=== PATIENT | male | born 1990 | race Caucasian/White ===

== ENCOUNTER 2017-02-02 15:19 | Emergency (ER) | payer OTHER ==
[~2017-02-02] VITALS: Ht 172.7 cm; Wt 70.3 kg
[2017-02-02] MEDS ORDERED: IV NORMAL SALINE 1000ML BAG 1,000 ML IV SCH (16:26)
[2017-02-02] MEDS ORDERED: KETOROLAC TROMETHAMINE 30 MG/ML INJ. IV ONE (16:30)
[2017-02-02] MEDS ORDERED: LORAZEPAM 2 MG/ML VIAL. IV ONE (16:30)
[2017-02-02] MEDS ORDERED: LIDO:MAALOX:DONNATAL 1:1:1 15 ML SINGLE DOSE SWSW ONE (16:30)
--- NOTE | 2017-02-02 16:34 | PHYS DOC ---
Past Medical History Past Medical History: Anxiety, Arthritis, Other Additional Past Medical Histor: SINUS PROBLEMS, COSTOCHONDRITIS, KIDNEY STONES Past Surgical History: Other Additional Past Surgical Histo: NASAL SX, SINUS SX, WISDOM Alcohol Use: None Drug Use: None Adult General Chief Complaint Chief Complaint: CHEST PAIN HPI HPI Patient is a 26 year old male who presents with complaint of chest pain. Patient states he awoke with chest pain this morning. Patient states that he has been having intermittent episodes of chest pain over the past month. Patient states that he has been seen as recently as 2 days ago in the emergency department and was treated for costochondritis. Patient states that he has been treated with steroid therapy which did not help his symptoms and worsened his insomnia and anxiety. Patient states that he has pain in his chest with breathing. Patient has not had any fever, diaphoresis, or shortness of breath but states that his pain makes it difficult to breathe. Patient also states that he has been having pain in his throat and in his sinuses. The patient states that his sinus problems are chronic and he is currently being evaluated by ENT for a potential procedure to help with this. Patient states that approximately 1-1/2 hours prior to arrival he started getting severe symptoms that he stated were unbearable. Patient states that he has been having a significant amount of stress associated with the symptoms and while denying suicidal thoughts at this time, he does state that his stress may lead to thoughts of this in the future. Review of Systems Review of Systems Constitutional: Denies fever or chills [] Eyes: Denies change in visual acuity, redness, or eye pain [] HENT: Chronic nasal congestion, sore throat [] Respiratory: Pain with breathing [] Cardiovascular: Chest pain, denies edema [] GI: Denies abdominal pain, nausea, vomiting, bloody stools or diarrhea [] : Denies dysuria or hematuria [] Musculoskeletal: Denies back pain or joint pain [] Integument: Denies rash or skin lesions [] Neurologic: Denies headache, focal weakness or sensory changes [] Current Medications Current Medications Current Medications Medications (Trade) Dose Ordered Sig/Venancio Start Time Stop Time Status Last Admin Dose Admin Ketorolac Tromethamine (Toradol) 30 mg 1X ONCE 02/02/17 16:30 02/02/17 16:31 DC 02/02/17 17:02 30 MG Lorazepam (Ativan) 1 mg 1X ONCE 02/02/17 16:30 02/02/17 16:31 DC 02/02/17 17:03 1 MG Multi-Ingredient Mouthwash/Gargle (Gi Cocktail Single Dose) 15 ml 1X ONCE 02/02/17 16:30 02/02/17 16:31 DC 02/02/17 17:02 15 ML Sodium Chloride (Iv Sodium Chloride 0.9% 1000ml Bag) 1,000 ml @ 1,000 mls/hr Q1H 02/02/17 16:26 02/02/17 17:25 DC 02/02/17 17:03 1,000 MLS/HR Allergies Allergies Allergies Coded Allergies Type Severity Reaction Last Updated Verified No Known Drug Allergies 02/02/17 No Physical Exam Physical Exam Constitutional: Alert, afebrile, appears in mild to moderate discomfort. [] HENT: Normocephalic, atraumatic, bilateral external ears normal, oropharynx moist, no oral exudates, nose normal. [] Eyes: PERRLA, EOMI, conjunctiva normal, no discharge. [] Neck: Normal range of motion, no tenderness, supple, no stridor. [] Cardiovascular:Heart rate regular rhythm, no murmur [] Lungs & Thorax: Bilateral breath sounds clear to auscultation, tenderness palpation along left sternal border causing reproducible pain, no wheezing [] Abdomen: Bowel sounds normal, soft, no tenderness, no masses, no pulsatile masses. [] Skin: Warm, dry, no erythema, no rash. [] Back: No tenderness, no CVA tenderness. [] Extremities: No tenderness, no cyanosis, no clubbing, ROM intact, no edema. [] Neurologic: Alert and oriented X 3, normal motor function, normal sensory function, no focal deficits noted. [] Current Patient Data Vital Signs Vital Signs Date Time Temp Pulse Resp B/P Pulse Ox O2 Delivery O2 Flow Rate FiO2 02/02/17 15:23 98.2 87 18 158/110 100 Room Air 98.2 Lab Values Laboratory Tests Test 02/02/17 15:45 02/02/17 17:00 White Blood Count 5.9x10^3/uL (4.0-11.0) Red Blood Count 4.85x10^6/uL (4.30-5.70) Hemoglobin 14.2g/dL (13.0-17.5) Hematocrit 41.1% (39.0-53.0) Mean Corpuscular Volume 85fL (79-100) Mean Corpuscular Hemoglobin 29pg (25-35) Mean Corpuscular Hemoglobin Concent 35g/dL (31-37) Red Cell Distribution Width 12.7% (11.5-14.5) Platelet Count 216x10^3/uL (140-400) Neutrophils (%) (Auto) 71% (31-73) Lymphocytes (%) (Auto) 18% (24-48) L Monocytes (%) (Auto) 9% (0-9) Eosinophils (%) (Auto) 2% (0-3) Basophils (%) (Auto) 1% (0-3) Neutrophils # (Auto) 4.2x10^3uL (1.8-7.7) Lymphocytes # (Auto) 1.1x10^3/uL (1.0-4.8) Monocytes # (Auto) 0.5x10^3/uL (0.0-1.1) Eosinophils # (Auto) 0.1x10^3/uL (0.0-0.7) Basophils # (Auto) 0.0x10^3/uL (0.0-0.2) D-Dimer (Judit) < 0.27ug/mlFEU (0.00-0.50) Sodium Level 141mmol/L (136-145) Potassium Level 3.7mmol/L (3.5-5.1) Chloride Level 105mmol/L (98-107) Carbon Dioxide Level 27mmol/L (21-32) Anion Gap 9 (6-14) Blood Urea Nitrogen 12mg/dL (8-26) Creatinine 1.1mg/dL (0.7-1.3) Estimated GFR (Cockcroft-Gault) 79.7 Glucose Level 110mg/dL (70-99) H Calcium Level 9.3mg/dL (8.5-10.1) Magnesium Level 1.8mg/dL (1.8-2.4) Total Bilirubin 1.1mg/dL (0.2-1.0) H Direct Bilirubin 0.2mg/dL (0.0-0.2) Aspartate Amino Transferase (AST) 34U/L (15-37) Alanine Aminotransferase (ALT) 52U/L (16-63) Alkaline Phosphatase 65U/L (46-116) Creatine Kinase 106U/L (39-308) Creatine Kinase MB (Mass) 0.8ng/mL (0.0-3.6) Creatine Kinase MB Relative Index 0.8% (0-4) Troponin I Quantitative < 0.017ng/mL (0.000-0.055) Total Protein 7.3g/dL (6.4-8.2) Albumin 4.2g/dL (3.4-5.0) Lipase 136U/L (73-393) Urine Color Yellow Urine Clarity Clear Urine pH 8.5 Urine Specific [place] 1.010 Urine Protein Negativemg/dL (NEG-TRACE) Urine Glucose (UA) Negativemg/dL (NEG) Urine Ketones (Stick) Negativemg/dL (NEG) Urine Blood Negative (NEG) Urine Nitrite Negative (NEG) Urine Bilirubin Negative (NEG) Urine Urobilinogen Dipstick 1.0mg/dL (0.2 mg/dL) Urine Leukocyte Esterase Negative (NEG) Urine RBC 0/HPF (0-2) Urine WBC Occ/HPF (0-4) Urine Squamous Epithelial Cells Occ/LPF Urine Bacteria 0/HPF (0-FEW) Urine Opiates Screen Neg (NEG) Urine Methadone Screen Neg (NEG) Urine Barbiturates Neg (NEG) Urine Phencyclidine Screen Neg (NEG) Urine Amphetamine/Methamphetamine Neg (NEG) Urine Benzodiazepines Screen Neg (NEG) Urine Cocaine Screen Neg (NEG) Urine Cannabinoids Screen Neg (NEG) Urine Ethyl Alcohol Neg (NEG) Laboratory Tests 02/02/17 15:45 Laboratory Tests 02/02/17 15:45 EKG EKG Interpreted by me: Heart rate 76, normal sinus rhythm, normal intervals, normal axis, no acute ST/T-wave abnormalities present [] Radiology/Procedures Radiology/Procedures [facility] [address] [place] [address] IMAGING REPORT Signed PATIENT: FRANCESCA RITTER ACCOUNT: [id number] : 1990 LOCATION: ER AGE: 26 SEX: M EXAM STATUS: REG ER ORD. PHYSICIAN: NADINE CASAS MD REASON: chest pain PROCEDURE: PORTABLE CHEST 1V Exam: AP portable chest. History: Chest pain beginning today. Comparison: None. Findings: The heart and mediastinal structures are within normal limits for size. Lungs are without infiltrate. No pneumothorax or pleural effusion is appreciated. Impression: 1. No acute cardiopulmonary process. DICTATED and SIGNED BY: IGNACIO BANEGAS MD DATE: 02/02/17 8174 CC: CHARAN PAYTON; NADINE CASAS MD ~ [] Course & Med Decision Making Course & Med Decision Making Pertinent Labs and Imaging studies reviewed. (See chart for details) Patient was given GI cocktail, Ativan, and Toradol in the emergency department. Patient's labwork unremarkable. The patient states his symptoms have improved at this time. The patient's symptoms appear consistent with chest wall pain the patient's sore throat symptoms may be result of acid reflux due to patient's symptoms worsening at nighttime. Included in the patient's differential is chronic sinusitis with postnasal drip. The patient states that he is scheduled to see an learning disabled teacher on February 16. Advised to continue with this appointment. The patient will be started on Pepcid, Medrol Dosepak, and Valium at bedtime. Advised follow-up with patient's primary doctor in the next 5 days. Patient also provided referrals for Dr. Monroy of gastroenterology and Dr. Mcgill of cardiology for continued outpatient workup to rule out other causes for patient's symptoms. The patient at this time voices no suicidal or homicidal thoughts and states that he will follow-up with his psychiatrist and therapist for further psychiatric treatment. Advised return to the emergency department for any worsening symptoms. Patient voiced understanding and in agreement with treatment plan. Dragon Disclaimer Dragon Disclaimer This electronic medical record was generated, in whole or in part, using a voice recognition dictation system. Departure Departure Impression: Primary Impression: Chest pain Additional Impression: Anxiety Disposition: 01 HOME, SELF-CARE Condition: IMPROVED Referrals: MAURA MCGILL MD, SCOTT S MD Patient Instructions: Chest Pain (Nonspecific) Additional Instructions: Your lab testing did not reveal evidence for any acute problems with your lungs or heart. Your chest pain is likely due to inflammation of your chest wall. There is suspicion that you may be suffering from acid reflux symptoms which could be causing or sore throat. It is recommended that you follow-up in 1-[address] Monroy of gastroenterology for further evaluation of the possibility of acid reflux syndrome. You will also be referred to Dr. Mcgill of cardiology for recommended follow-up in 1-2 weeks for further evaluation of your chest pain. Return to the emergency department for any worsening symptoms. Scripts Famotidine (Pepcid)20 Mg Dixndz21 Mg PO BID #30 TAB Prov:NADINE CASAS MD 02/02/17 Diazepam (Valium)5 Mg Tablet5 Mg PO QHS PRN INSOMNIA #15 TAB Prov:NADINE CASAS MD 02/02/17 Methylprednisolone (Medrol)4 Mg Tab.ds.pk1 Pkg PO UD #1 PKG Prov:NADINE CASAS MD 02/02/17 Problem Qualifiers Primary Impression: Chest pain Chest pain type: other chest pain Qualified Code: R07.89 - Other chest pain NADINE CASAS MD Feb 02, 2017 16:34
[2017-02-02 16:42] LABS: BASO % 1 % (0-3); EOS % 2 % (0-3); HEMATOCRIT 41.1 % (39.0-53.0); HEMOGLOBIN 14.2 g/dL (13.0-17.5); LYMPH # 1.1 x10^3/uL (1.0-4.8); LYMPH % 18 % (24-48); MEAN CORPUSCULAR HEMOGLOBIN 29 pg (25-35); MEAN CORPUSCULAR HGB CONC 35 g/dL (31-37); MEAN CORPUSCULAR VOLUME 85 fL (79-100); MONO % 9 % (0-9); NEUT % 71 % (31-73); PLATELET COUNT 216 x10^3/uL (140-400); RED BLOOD COUNT 4.85 x10^6/uL (4.30-5.70); RED CELL DISTRIBUTION WIDTH 12.7 % (11.5-14.5); WHITE BLOOD COUNT 5.9 x10^3/uL (4.0-11.0)
--- NOTE | 2017-02-02 16:47 | RAD ---
Exam: AP portable chest. History: Chest pain beginning today. Comparison: None. Findings: The heart and mediastinal structures are within normal limits for size. Lungs are without infiltrate. No pneumothorax or pleural effusion is appreciated. Impression: 1. No acute cardiopulmonary process.
[2017-02-02 17:00] VITALS: BP 127/87
[2017-02-02 17:04] LABS: CALCIUM 9.3 mg/dL (8.5-10.1); CREATININE 1.1 mg/dL (0.7-1.3); GFR 79.7; POTASSIUM 3.7 mmol/L (3.5-5.1)
[2017-02-02 17:10] LABS: ALBUMIN 4.2 g/dL (3.4-5.0); DIRECT BILIRUBIN 0.2 mg/dL (0.0-0.2); MAGNESIUM 1.8 mg/dL (1.8-2.4); TOTAL BILIRUBIN 1.1 mg/dL (0.2-1.0); TOTAL PROTEIN 7.3 g/dL (6.4-8.2)
[2017-02-02 17:15] LABS: CKMB INDEX 0.8 % (0-4); CKMB MASS 0.8 ng/mL (0.0-3.6)
[2017-02-02 17:27] LABS: BILIRUBIN,URINE NEGATIVE (NEG); GLUCOSE,URINE NEGATIVE (NEG); NITRITE,URINE NEGATIVE (NEG); PH,URINE 8.5; PROTEIN,URINE NEGATIVE (NEG-TRACE)
[2017-02-02 17:35] LABS: BARBITURATES NEG (NEG); BENZODIAZEPINES NEG (NEG); CANNABINOIDS NEG (NEG); COCAINE NEG (NEG); METHADONE NEG (NEG); OPIATES NEG (NEG); PHENCYCLIDINE NEG (NEG)
[2017-02-02 17:36] LABS: ETHANOL, URINE NEG (NEG)
[2017-02-02 17:41] LABS: BACTERIA,URINE 0 /HPF (0-FEW); RBC,URINE 0 /HPF (0-2); SQUAMOUS EPITHELIAL CELL,UR OCC /LPF; WBC,URINE OCC /HPF (0-4)
--- NOTE | 2017-02-02 17:59 | EKG ---
[facility] [address] [place] [address] Test Date: 2017-02-02 Test Time: 15:23:00 Pat Name: FRANCESCA RITTER Department: Room: Gender: M Basketball Coach: : 1990 Requested By: NADINE CASAS Order Number: [id number] Reading MD: Mohan Mcgill Measurements Intervals [place] Rate: 76 P: 51 [place]: 156 QRS: 23 QRSD: 92 T: 30 QT: 336 QTc: 382 Interpretive Statements SINUS RHYTHM Electronically Signed On 02-03-2017 15:55:37 CDT by Mohan Mcgill
[2017-02-02] MEDS ORDERED: METH4TAB2 PO (18:33)
[2017-02-02] MEDS ORDERED: FAMO-63 PO (18:33)
[2017-02-02] MEDS ORDERED: DIAZ5TAB PO (18:33)
== END 2017-02-02 18:58 | disposition home or self-care (01) ==
LOC: ER 15:19
DX: R07.89 Other chest pain (principal); F41.9 Anxiety disorder, unspecified; M19.90 Unspecified osteoarthritis, unspecified site
CPT/HCPCS: 36415; 71010; 80048; 80076; 80305; 81001; 82553; 83690; 83735; 84484; 85027; 85379; 93005; 96361; 96374; 96375; 99285; J1885; J2060; J7030; G0481

== ENCOUNTER → 2017-03-03 | Outpatient (CLI) | payer OTHER ==
[2017-02-02 17:00] VITALS: BP 127/87
[~2017-03-03] VITALS: Ht 170.2 cm; Wt 68.9 kg
[~2017-03-03] MED LIST: DIAZ5TAB PO; FAMO-63 PO; METH4TAB2 PO; SINCALIDE 1.38 MCG in IV NORMAL SALINE 50ML 30 ML IV ONE
--- NOTE | 2017-03-03 10:53 | RAD ---
Right upper quadrant abdominal ultrasound, 03/03/2017: History: Pain The gallbladder is within normal limits in size. There is no sonographic evidence of cholelithiasis. The gallbladder wall is not thickened. No bile duct dilatation is seen. The visualized portions of the liver, pancreas and right kidney are unremarkable. IMPRESSION: No significant abnormality is detected.
--- NOTE | 2017-03-03 13:13 | RAD ---
Indication abdominal pain for 3 months. Hepatobiliary scan was performed. 5 mCi of technetium labeled Choletec was administered. 1.4 mcg of CCK was diluted in saline and administered over several minutes. Following the CCK administration a gallbladder ejection fraction calculation was made. There is normal uptake of the radiopharmaceutical in the liver. Activity is seen early in the biliary system and gallbladder. Following the Kinevac administration the estimated gallbladder ejection fraction approaches 80%. IMPRESSION: Normal study
== END | disposition home or self-care (01) ==
LOC: US 09:55
PROVIDERS: ATTEND Internal Medicine Gastroenterology
DX: R10.13 Epigastric pain (principal)
CPT/HCPCS: 76705; 78226; 96374; 96375; A9537; J2805

== ENCOUNTER 2017-03-23 11:11 | Emergency (ER) | payer OTHER ==
[~2017-03-23] VITALS: Ht 170.2 cm; Wt 68.0 kg
[~2017-03-23 11:11] MED LIST changes: -SINCALIDE 1.38 MCG in IV NORMAL SALINE 50ML 30 ML IV ONE
[2017-03-23] MEDS ORDERED: fentaNYL PF VIAL 100 MCG/2 ML VIAL IV ONE (11:45)
[2017-03-23] MEDS ORDERED: KETOROLAC TROMETHAMINE 30 MG/ML INJ. IV ONE (11:45)
[2017-03-23 12:10] LABS: BASO # 0.1 x10^3/uL (0.0-0.2); BASO % 1 % (0-3); EOS % 3 % (0-3); HEMATOCRIT 43.5 % (39.0-53.0); HEMOGLOBIN 15.2 g/dL (13.0-17.5); LYMPH # 1.5 x10^3/uL (1.0-4.8); LYMPH % 31 % (24-48); MEAN CORPUSCULAR HEMOGLOBIN 29 pg (25-35); MEAN CORPUSCULAR HGB CONC 35 g/dL (31-37); MEAN CORPUSCULAR VOLUME 84 fL (79-100); MONO % 9 % (0-9); NEUT % 55 % (31-73); PLATELET COUNT 256 x10^3/uL (140-400); RED BLOOD COUNT 5.15 x10^6/uL (4.30-5.70); RED CELL DISTRIBUTION WIDTH 12.8 % (11.5-14.5); WHITE BLOOD COUNT 4.9 x10^3/uL (4.0-11.0)
[2017-03-23 12:12] LABS: CALCIUM 9.6 mg/dL (8.5-10.1); CREATININE 0.9 mg/dL (0.7-1.3); GFR 100.5; POTASSIUM 4.1 mmol/L (3.5-5.1)
[2017-03-23 12:18] LABS: ALBUMIN 4.4 g/dL (3.4-5.0); ALBUMIN/GLOBULIN RATIO 1.4 (1.0-1.7); TOTAL BILIRUBIN 1.7 mg/dL (0.2-1.0); TOTAL PROTEIN 7.6 g/dL (6.4-8.2)
--- NOTE | 2017-03-23 12:25 | RAD ---
EXAM: Chest one view. HISTORY: Chest pain and shortness of breath. COMPARISON: 02/02/2017. FINDINGS: A frontal view of the chest is obtained. There are no confluent infiltrates. There is no pneumothorax or pleural effusion. The heart is not enlarged. IMPRESSION: 1. No confluent infiltrates.
[2017-03-23] MEDS ORDERED: HYDR-971 PO (12:32)
--- NOTE | 2017-03-23 12:33 | PHYS DOC ---
Past Medical History Past Medical History: Anxiety, Arthritis, Other Additional Past Medical Histor: SINUS PROBLEMS, COSTOCHONDRITIS, KIDNEY STONES Past Surgical History: Other Additional Past Surgical Histo: NASAL SX, SINUS SX, WISDOM Alcohol Use: None Drug Use: None Adult General Chief Complaint Chief Complaint: MULTIPLE COMPLAINTS HPI HPI Patient is a 26 year old male presenting to the emergency department for evaluation of sore throat and chest pain that has been an ongoing issue for at least 3 weeks. Sore throat feels very scratchy and he has seen multiple specialists including ENT and he is scheduled to see GI today cardiology Thursday and his ENT again later next week. Patient says that the pain in his chest is sharp worse with inspiration and he says that he gets some short of breath when he is up walking around. He says that this pain is fairly constant for the past 3 weeks but is worse with deep breaths. He says it hurts to swallow and he has a lot of postnasal drip and he has tried multiple [id number] medications with no relief. Review of Systems Review of Systems Constitutional: Denies fever or chills [] HENT: + nasal congestion and sore throat [] Respiratory: + cough and shortness of breath [] Cardiovascular: + CP GI: Denies abdominal pain, nausea, vomiting, bloody stools or diarrhea [] Current Medications Current Medications Current Medications Medications (Trade) Dose Ordered Sig/Venancio Start Time Stop Time Status Last Admin Dose Admin Fentanyl Citrate (Fentanyl 2ml Vial) 75 mcg 1X ONCE 03/23/17 11:45 03/23/17 11:46 DC 03/23/17 12:05 75 MCG Ketorolac Tromethamine (Toradol) 30 mg 1X ONCE 03/23/17 11:45 03/23/17 11:46 DC 03/23/17 12:03 30 MG Allergies Allergies Allergies Coded Allergies Type Severity Reaction Last Updated Verified No Known Drug Allergies 03/23/17 No Physical Exam Physical Exam Constitutional: Well developed, well nourished, no acute distress, non-toxic appearance. [] HENT: Normocephalic, atraumatic, bilateral external ears normal, oropharynx mildly erythematous Cardiovascular:Heart rate regular rhythm, no murmur [] Lungs & Thorax: Bilateral breath sounds clear to auscultation [] Abdomen: Bowel sounds normal, soft, no tenderness, no masses, no pulsatile masses. [] Current Patient Data Vital Signs Vital Signs Date Time Temp Pulse Resp B/P (MAP) Pulse Ox O2 Delivery O2 Flow Rate FiO2 03/23/17 12:05 18 97 Room Air 03/23/17 11:25 97.9 76 97.9 Lab Values Laboratory Tests Test 03/23/17 11:50 White Blood Count 4.9 x10^3/uL (4.0-11.0) Red Blood Count 5.15 x10^6/uL (4.30-5.70) Hemoglobin 15.2 g/dL (13.0-17.5) Hematocrit 43.5 % (39.0-53.0) Mean Corpuscular Volume 84 fL (79-100) Mean Corpuscular Hemoglobin 29 pg (25-35) Mean Corpuscular Hemoglobin Concent 35 g/dL (31-37) Red Cell Distribution Width 12.8 % (11.5-14.5) Platelet Count 256 x10^3/uL (140-400) Neutrophils (%) (Auto) 55 % (31-73) Lymphocytes (%) (Auto) 31 % (24-48) Monocytes (%) (Auto) 9 % (0-9) Eosinophils (%) (Auto) 3 % (0-3) Basophils (%) (Auto) 1 % (0-3) Neutrophils # (Auto) 2.7 x10^3uL (1.8-7.7) Lymphocytes # (Auto) 1.5 x10^3/uL (1.0-4.8) Monocytes # (Auto) 0.4 x10^3/uL (0.0-1.1) Eosinophils # (Auto) 0.2 x10^3/uL (0.0-0.7) Basophils # (Auto) 0.1 x10^3/uL (0.0-0.2) D-Dimer (Judit) 0.27 ug/mlFEU (0.00-0.50) Sodium Level 142 mmol/L (136-145) Potassium Level 4.1 mmol/L (3.5-5.1) Chloride Level 104 mmol/L (98-107) Carbon Dioxide Level 27 mmol/L (21-32) Anion Gap 11 (6-14) Blood Urea Nitrogen 10 mg/dL (8-26) Creatinine 0.9 mg/dL (0.7-1.3) Estimated GFR (Cockcroft-Gault) 100.5 BUN/Creatinine Ratio 11 (6-20) Glucose Level 92 mg/dL (70-99) Calcium Level 9.6 mg/dL (8.5-10.1) Total Bilirubin 1.7 mg/dL (0.2-1.0) H Aspartate Amino Transferase (AST) 27 U/L (15-37) Alanine Aminotransferase (ALT) 28 U/L (16-63) Alkaline Phosphatase 73 U/L (46-116) Troponin I Quantitative < 0.017 ng/mL (0.000-0.055) TQ-Smk-T-Type Natriuretic Peptide 18 pg/mL (0-124) Total Protein 7.6 g/dL (6.4-8.2) Albumin 4.4 g/dL (3.4-5.0) Albumin/Globulin Ratio 1.4 (1.0-1.7) Lipase 154 U/L (73-393) Laboratory Tests 03/23/17 11:50 Laboratory Tests 03/23/17 11:50 EKG EKG Normal sinus rhythm at 70 bpm with normal axis no obvious ST elevation or depression and normal T waves. Radiology/Procedures Radiology/Procedures EXAM: Chest one view. HISTORY: Chest pain and shortness of breath. COMPARISON: 02/02/2017. FINDINGS: A frontal view of the chest is obtained. There are no confluent infiltrates. There is no pneumothorax or pleural effusion. The heart is not enlarged. IMPRESSION: 1. No confluent infiltrates. DICTATED and SIGNED BY: NAVEEN GOEL MD DATE: 03/23/17 1221 Course & Med Decision Making Course & Med Decision Making Patient with atypical chest pain and a sore throat and he is following with multiple specialists. I doubt ACS as he has pulmonary and wasn't or dissection at this time so he'll be discharged with symptomatically treatment told to keep his especially follow-up appointment. Patient aware and agreeable with plan for discharge and verbalized her standing of the need for short-term follow-up and strict ER return precautions discussed including worsening pain shortness of breath or other general concerns. Dragon Disclaimer Dragon Disclaimer This electronic medical record was generated, in whole or in part, using a voice recognition dictation system. Departure Departure Impression: Primary Impression: Chest pain Additional Impression: Sore throat Disposition: HOME, SELF-CARE Condition: STABLE Referrals: CHARAN PAYTON (PCP) Patient Instructions: Chest Pain (Nonspecific) Scripts Hydrocodone/Apap 5-325 (NORCO 5-325 TABLET) 1 Each Tablet 1 TAB PO PRN Q6HRS Y for PAIN, #14 TAB 0 Refills Prov: JOHNSON VAUGHN DO 03/23/17 Problem Qualifiers Primary Impression: Chest pain Chest pain type: unspecified Qualified Codes: R07.9 - Chest pain, unspecified JOHNSON VAUGHN DO Mar 23, 2017 12:33
[2017-03-23 12:40] VITALS: BP 126/80
--- NOTE | 2017-03-24 09:38 | EKG ---
[facility] [address] [place] [address] Test Date: 2017-03-23 Test Time: 11:40:48 Pat Name: FRANCESCA RITTER Department: Room: Gender: M Travel Rn: : 1990 Requested By: JOHNSON VAUGHN Order Number: [id number] Reading MD: Mohan Mcgill Measurements Intervals [place] Rate: 78 P: 127 [place]: 160 QRS: 156 QRSD: 96 T: 140 QT: 334 QTc: 384 Interpretive Statements SR LIMB LEAD MISPLACEMENT Electronically Signed On 03-24-2017 9:38:31 CDT by Mohan Mcgill
== END 2017-03-23 12:45 | disposition home or self-care (01) ==
LOC: ER 11:11
DX: R07.1 Chest pain on breathing (principal); J02.9 Acute pharyngitis, unspecified; F41.9 Anxiety disorder, unspecified; M19.90 Unspecified osteoarthritis, unspecified site; Z98.890 Other specified postprocedural states; Z86.79 Personal history of other diseases of the circulatory system
CPT/HCPCS: 36415; 71010; 80053; 83690; 83880; 84484; 85027; 85379; 93005; 96374; 96375; 99285; J1885; J3010

== ENCOUNTER → 2017-04-06 | Outpatient (CLI) | payer OTHER ==
[2017-03-23 12:40] VITALS: BP 126/80
[~2017-04-06] MED LIST changes: +HYDR-971 PO
--- NOTE | 2017-04-06 15:12 | CARD ---
APPROVED REPORT INDICATION Chest Pain RISK FACTORS Family History Reason : Patient complained of pain PROCEDURE The patient underwent an exercise Stress Test using the Jean protocol. Blood pressure, heart rate, a nd EKG were monitored. An Echocardiogram was performed by breed to wean production technician in four stages in quad fashion. At peak stress four se lected images were obtained and placed side by side with resting images for comparison. STRESS ECHO FINDINGS The resting Echocardiogram showed normal left ventricular contractility with an estimated Ejection Fr action of about 65 %. Normal augmentation of myocardial wall segments using a 16 segment model. Test Type: Exercise Stress Nurse/Tech: Zuleika Guillen R.N. Test Indications: Chest pain. Cardiac History and Allergies: SEE EMR Medications: SEE EMR Medical History: SEE EMR Resting ECG: SR Resting Heart Rate: 71 bpm Resting Blood Pressure: 146/91mmHg Pretest Chest Pain: None Nurse/Tech Notes S1S2, lungs CTA, denied chest pain, dizziness or SOA. Pt is wearing BL ankle braces and BL knee brace s. Consent: The procedure was explained to the patient in lay terms. Informed consent was witnessed. Devang eout was entered into [employer]. History and Stress Test performed by Zuleika Guillen R.N. Stress Symptoms Slightly SOA. Denied dizziness or chest pain. Tolerated running on treadmill despite knee and ankle b races. POST EXERCISE Reason for Termination: Reached target heart rate Target HR: 163 Max HR: 181 bpm 94% of Maximum Predicted HR: 192 bpm Exercise duration: 10:02 min:sec, 4 Stage Exercise capacity: 12.8METs Max Blood Pressure: 190/90mmHg Blood Pressure response to exercise: Abnormal blood pressure response during stress. Heart Rate response to exercise: Normal Chest Pain: No. Arrhythmia: No. ST Change: No. INTERPRETATION Stress EKG Conclusion: No evidence of ischemia. RESTING ECG Rhythm: Sinus Conduction: Normal Arrhythmias: None Repolarization: Normal STRESS ECG Rhythm: Sinus Tachycardia Arrhythmias: None Stress EKG shows no significant changes. <Conclusion> 1. Good exercise capacity at 12.8 mets. 2. No evidence of significant EKG changes. 3. Normal resting and stress echocardiogram. EF > 70% 4. Low risk study
== END | disposition home or self-care (01) ==
LOC: ECHO 12:47
PROVIDERS: ATTEND Internal Medicine Cardiovascular Disease
DX: R07.9 Chest pain, unspecified (principal)
CPT/HCPCS: 93017; 93350

== ENCOUNTER → 2017-07-01 | Outpatient (CLI) | payer OTHER ==
--- NOTE | 2017-07-01 12:49 | RAD ---
Radionuclide gastric emptying study, 07/01/2017: History: Abdominal pain The study was performed utilizing a solid test meal radiolabeled with 1.8 mCi of technetium 99m sulfur colloid. The time to half emptying of the test meal from the patient's stomach was estimated at 560 minutes. A normal T1/2 is 60 minutes +/- 30 minutes. IMPRESSION: Markedly delayed gastric emptying.
== END | disposition home or self-care (01) ==
LOC: NM 10:17
PROVIDERS: ATTEND Internal Medicine Gastroenterology
DX: K30 Functional dyspepsia (principal)
CPT/HCPCS: 78264; A9541